=== PATIENT | female | born 1995 | race Caucasian/White ===

== ENCOUNTER → 2017-08-24 | Outpatient (CLI) | payer OTHER | LOC: BMCIMAGING 09:43 | PROVIDERS: ATTEND Physician Assistant | DX: Z13.820 Encounter for screening for osteoporosis (principal); F50.9 Eating disorder, unspecified; M85.80 Other specified disorders of bone density and structure, unspecified site ==

== ENCOUNTER → 2017-09-19 | Outpatient (CLI) | payer OTHER | LOC: BMCIMAGING 10:39 → EDSTATUS 10:44 | PROVIDERS: ATTEND Physician Assistant | DX: R10.9 Unspecified abdominal pain (principal); F50.9 Eating disorder, unspecified ==

== ENCOUNTER → 2018-06-26 | Outpatient (CLI) | payer OTHER | LOC: FIMAGING 08:32 | PROVIDERS: ATTEND Obstetrics & Gynecology | DX: R10.2 Pelvic and perineal pain (principal); Z97.5 Presence of (intrauterine) contraceptive device ==

== ENCOUNTER 2018-12-19 20:16 | Emergency (ER) | payer OTHER ==
[2018-12-19] MEDS ORDERED: NS 1,000 ML IV ONE ×2 (20:36)
--- NOTE | 2018-12-19 20:49 | EDPHY ---
H & P Stated Complaint: dx with uti x 2 days, dizziness back pain today Time Seen by Provider: 12/19/18 20:36 HPI/ROS: HPI: This is a 23-year-old female who presents with Chief Complaint: dx with uti x 2 days, dizziness back pain today Location: Lower back Quality: Discomfort and pressure Duration: To 3 hr prior to arrival Signs and Symptoms: no fever, no nausea, no vomiting, no hematemesis, no blood in stool, no abdominal bloating, no diarrhea, + back pain, no urinary symptoms, no vaginal bleeding, no indigestion, no chest pain, no shortness of breath Timing: Acute, intermittent episodes Severity: Mild Context: Patient was diagnosed with a urinary tract infection on 12/17/2018 at the urgent care and prescribed Uribel and Keflex by Dr. Camacho. Reports compliance with taking both medications. States that her urine is a light green in color from the Uribel. Patient presents today with complaints of lower back discomfort that is described as achiness, bilateral, nonradiating in nature. She has a history of pyelonephritis and she is concerned that she may have worsening urinary tract symptoms. She went to the urgent care today due to vaginal discharge and itchiness and had a pelvic exam performed along with pelvic swabs. She reports that she will be called tomorrow with the results these cultures. After further questioning. She admits to me that she is concerned that she may have chlamydia. She has had unprotected sexual intercourse. She does have an IUD in place. Modifying Factors: Comment: ROS: A comprehensive 10 system review of systems is otherwise negative aside from elements mentioned in the history of present illness. MEDICAL/SURGICAL/SOCIAL HISTORY: Medical history: Generally healthy. Does not take any regular medications. Surgical history: Denies Social history: Family history noncontributory. Former smoker. CONSTITUTIONAL: Well-developed, well-nourished, young adult white female, awake and alert, no obvious distress HEENT: Atraumatic and normocephalic, PERRL, EOMI. Nares patent; no rhinorrhea; no nasal mucosal edema. Tympanic membranes clear. Oropharynx clear, no exudate and moist pink mucosa. Airway patent. No lymphadenopathy. No meningismus. Cardiovascular: Normal S1/S2, regular rate, regular rhythm, without murmur rub or gallop. PULMONARY/CHEST: Symmetrical and nontender. Clear to auscultation bilaterally. Good air movement. No accessory muscle usage. ABDOMEN: Soft, nondistended, nontender, no rebound, no guarding, no peritoneal signs, no masses or organomegaly. No CVAT. EXTREMITIES: 2/2 pulses, strength 5/5, no deformities, no clubbing, no cyanosis or edema. NEUROLOGICAL: no focal neuro deficits. GCS 15. SKIN: Warm and dry, no erythema. no rash. Good capillary refill. Source: Patient Exam Limitations: No limitations - Personal History LMP (Females 10-55): IUD In Place - Medical/Surgical History Hx Asthma: No Hx Chronic Respiratory Disease: No Hx Diabetes: No Hx Cardiac Disease: No Hx Renal Disease: No Hx Cirrhosis: No Hx Alcoholism: No Hx HIV/AIDS: No Hx Splenectomy or Spleen Trauma: No - Social History Smoking Status: Former smoker Constitutional: Initial Vital Signs Temperature (C) 37.0 C 12/19/18 20:23 Heart Rate 71 12/19/18 20:23 Blood Pressure 122/77 H 12/19/18 20:23 O2 Sat (%) 94 12/19/18 20:23 O2 Delivery Mode Room Air Allergies/Adverse Reactions: egg [eggs] Allergy (Verified 12/19/18 20:36) shellfish derived Allergy (Verified 12/19/18 20:36) wheat Allergy (Verified 12/19/18 20:36) Home Medications: Medication Instructions Recorded Keflex 12/19/18 Uribel Capsule 12/19/18 Medical Decision Making ED Course/Re-evaluation: Vital signs reviewed upon arrival in stable. No systemic signs. Patient does not appear to toxic. IV access, laboratory studies, urinalysis ordered Laboratory studies reviewed and No signs of leukocytosis/anemia/platelet dysfunction/MICHEAL/electrolyte imbalance/. Urinalysis is completely unremarkable Patient is extremely concerned about gonorrhea and chlamydia and reports "I cannot wait for the results." Decision made to prophylactically treat with IM Rocephin 250 mg and p.o. Azithromycin 1 g. Reassured patient that urine is negative into continue antibiotic until complete. Patient is not exhibiting any signs of sepsis, pyelonephritis. This patient was seen under the supervision of my primary supervising physician. I evaluated and cared for this patient independently. Differential Diagnosis: Back pain including but not limited to muscular pain, herniated disc, spine fracture, intra-abdominal causes and urinary tract infection. - Data Points Laboratory Results: Laboratory Results 12/19/18 21:14 12/19/18 21:14 12/19/18 12/19/18 12/19/18 21:14 21:14 21:14 WBC 8.91 10^3/uL 10^3/uL (3.80-9.50) RBC 4.99 10^6/uL 10^6/uL (4.18-5.33) Hgb 14.5 g/dL g/dL (12.6-16.3) Hct 44.3 % % (38.0-47.0) MCV 88.8 fL fL (81.5-99.8) MCH 29.1 pg pg (27.9-34.1) MCHC 32.7 g/dL g/dL (32.4-36.7) RDW 13.2 % % (11.5-15.2) Plt Count 242 10^3/uL 10^3/uL (150-400) MPV 9.6 fL fL (8.7-11.7) Neut % (Auto) 54.5 % % (39.3-74.2) Lymph % (Auto) 37.3 % % (15.0-45.0) Placer % (Auto) 6.3 % % (4.5-13.0) Eos % (Auto) 1.5 % % (0.6-7.6) Baso % (Auto) 0.2 % L % (0.3-1.7) Nucleat RBC Rel Count 0.0 % % (0.0-0.2) Absolute Neuts (auto) 4.86 10^3/uL 10^3/uL (1.70-6.50) Absolute Lymphs (auto) 3.32 10^3/uL H 10^3/uL (1.00-3.00) Absolute Monos (auto) 0.56 10^3/uL 10^3/uL (0.30-0.80) Absolute Eos (auto) 0.13 10^3/uL 10^3/uL (0.03-0.40) Absolute Basos (auto) 0.02 10^3/uL 10^3/uL (0.02-0.10) Absolute Nucleated RBC 0.00 10^3/uL 10^3/uL (0-0.01) Immature Gran % 0.2 % % (0.0-1.1) Immature Gran # 0.02 10^3/uL 10^3/uL (0.00-0.10) Sodium 137 mEq/L mEq/L (135-145) Potassium 3.5 mEq/L mEq/L (3.5-5.2) Chloride 103 mEq/L mEq/L (97-110) Carbon Dioxide 22 mEq/l mEq/l (22-31) Anion Gap 12 mEq/L mEq/L (6-14) BUN 18 mg/dL mg/dL (7-23) Creatinine 0.7 mg/dL mg/dL (0.6-1.0) Estimated GFR > 60 Glucose 77 mg/dL mg/dL (70-100) Calcium 9.3 mg/dL mg/dL (8.5-10.4) Beta HCG, Qual NEGATIVE Urine Color Urine Appearance Urine pH Ur Specific [place] Urine Protein Urine Ketones Urine Blood Urine Nitrate Urine Bilirubin Urine Urobilinogen Ur Leukocyte Esterase Urine Glucose 12/19/18 20:50 WBC RBC Hgb Hct MCV MCH MCHC RDW Plt Count MPV Neut % (Auto) Lymph % (Auto) Placer % (Auto) Eos % (Auto) Baso % (Auto) Nucleat RBC Rel Count Absolute Neuts (auto) Absolute Lymphs (auto) Absolute Monos (auto) Absolute Eos (auto) Absolute Basos (auto) Absolute Nucleated RBC Immature Gran % Immature Gran # Sodium Potassium Chloride Carbon Dioxide Anion Gap BUN Creatinine Estimated GFR Glucose Calcium Beta HCG, Qual Urine Color GREEN Urine Appearance CLEAR Urine pH 6.0 (5.0-7.5) Ur Specific [place] 1.019 (1.002-1.030) Urine Protein NEGATIVE (NEGATIVE) Urine Ketones NEGATIVE (NEGATIVE) Urine Blood NEGATIVE (NEGATIVE) Urine Nitrate NEGATIVE (NEGATIVE) Urine Bilirubin NEGATIVE (NEGATIVE) Urine Urobilinogen NEGATIVE EU EU (0.2-1.0) Ur Leukocyte Esterase NEGATIVE (NEGATIVE) Urine Glucose NEGATIVE (NEGATIVE) Medications Given: Discontinued Medications Acetaminophen (Tylenol) 1,000 mg PO EDNOW ONE Stop: 12/19/18 21:40 Last Admin: 12/19/18 21:48 Dose: 1,000 mg Azithromycin (Zithromax) 1,000 mg PO EDNOW ONE PRN Reason: Protocol Stop: 12/19/18 22:24 Last Admin: 12/19/18 22:31 Dose: 1,000 mg Ceftriaxone Sodium (Rocephin Im Syringe) 250 mg IM EDNOW ONE PRN Reason: Protocol Stop: 12/19/18 22:24 Last Admin: 12/19/18 22:56 Dose: 250 mg Sodium Chloride (Ns) 1,000 mls @ 0 mls/hr IV ONCE ONE; Wide Open PRN Reason: Protocol Stop: 12/19/18 20:37 Last Admin: 12/19/18 21:16 Dose: 1,000 mls Sodium Chloride (Ns) 1,000 mls @ 0 mls/hr IV ONCE ONE; Wide Open PRN Reason: Protocol Stop: 12/19/18 20:37 Last Admin: 12/19/18 21:17 Dose: 1,000 mls Ondansetron HCl (Zofran) 4 mg IVP EDNOW ONE Stop: 12/19/18 21:39 Last Admin: 12/19/18 21:40 Dose: 4 mg Ondansetron HCl (Zofran Odt) 4 mg PO EDNOW ONE Stop: 12/19/18 22:24 Last Admin: 12/19/18 22:41 Dose: Not Given Ondansetron HCl (Zofran) 4 mg IVP EDNOW ONE Stop: 12/19/18 22:42 Last Admin: 12/19/18 22:42 Dose: 4 mg Departure - Departure Disposition: Home, Routine, Self-Care Clinical Impression: Sexually transmitted disease exposure Urinary tract infection Qualifiers: Urinary tract infection type: acute cystitis Hematuria presence: without hematuria Qualified Code(s): N30.00 - Acute cystitis without hematuria Condition: Good Instructions: Sexually Transmitted Diseases (ED), Urinary Tract Infection in Women (ED), Safe Sex Practices for Adolescents (ED) Additional Instructions: Continue to take Keflex 500 mg 3 times a day for the total 7 days. Please wait for you're pelvic swab cultures to resulted from the urgent care clinic. You have been given antibiotics to cover gonorrhea and chlamydia today. Please refrain from sexual activity for minimum of 7 days and until all sexual partners have been treated if test results are positive. Referrals: Betsy Bobby PA [Primary Care Provider] - As per Instructions
[2018-12-19 21:32] LABS: PLATELET COUNT 242 10^3/uL (150-400)
[2018-12-19] MEDS ORDERED: ONDANSETRON 4 MG/2 ML VIAL ONE (21:33)
[2018-12-19] MEDS ORDERED: ONDANSETRON 4 MG/2 ML VIAL IVP ONE ×2 (21:38→22:41)
[2018-12-19] MEDS ORDERED: ACETAMINOPHEN 500 MG TAB PO ONE (21:39)
[2018-12-19 22:19] VITALS: BP 95/73
[2018-12-19] MEDS ORDERED: ONDANSETRON DISINTEGRATING 4 MG TAB PO ONE (22:23)
[2018-12-19] MEDS ORDERED: AZITHROMYCIN 250 MG TAB PO ONE (22:23)
== END 2018-12-19 23:17 | disposition home or self-care (01) ==
DX: A64 Unspecified sexually transmitted disease (principal); N30.00 Acute cystitis without hematuria; E86.9 Volume depletion, unspecified; Z87.891 Personal history of nicotine dependence; Z97.5 Presence of (intrauterine) contraceptive device
CPT/HCPCS: 96374; J0696; J2405

== ENCOUNTER 2019-01-20 01:04 | Emergency (ER) | payer OTHER ==
--- NOTE | 2019-01-20 01:11 | EDPHY ---
H & P Stated Complaint: uti symptoms for 6 hours, took keflex and azo cryptanalyst Time Seen by Provider: 01/20/19 01:11 HPI/ROS: HPI CHIEF COMPLAINT: Urinary frequency, dysuria. HISTORY OF PRESENT ILLNESS: Patient very pleasant 23-year-old female, she presents emergency room with urinary frequency and dysuria that started late this evening. She states woke her up sleep. She mainly complains of dysuria. She denies any back pain. Does complain of some suprapubic cramping. Denies being . Denies vomiting. This started suddenly tonight. She reports to me she took some Keflex that was left over from her previous urinary tract infection a while ago but thinks it may have been . Past Medical History: Denies significant medical history Past Surgical History: Denies recent surgery Social History: Denies drugs alcohol tobacco. Family History: Noncontributory ROS REVIEW OF SYSTEMS: 10 Systems were reviewed and negative with the exception of the elements mentioned in the history of present illness. Exam Constitutional appears well nontoxic no acute distress triage nursing summary reviewed, vital signs reviewed, awake/alert. Vital signs stable. Eyes normal conjunctivae and sclera, EOMI, PERRLA. HENT normal inspection, atraumatic, moist mucus membranes, no epistaxis, neck supple/ no meningismus, no raccoon eyes. Respiratory clear to auscultation bilaterally, normal breath sounds, no respiratory distress, no wheezing. Cardiovascular rate normal, regular rhythm, no murmur, no edema, distal pulses normal. Gastrointestinal mild tender palpation suprapubic, no right lower quadrant pain , no peritoneal signs, soft, non-tender, no rebound, no guarding, normal bowel sounds, no distension, no pulsatile mass. Genitourinary no CVA tenderness. Musculoskeletal no midline vertebral tenderness, full range of motion, no calf swelling, no tenderness of extremities, no meningismus, good pulses, neurovascularly intact. Skin pink, warm, & dry, no rash, skin atraumatic. Neurologic awake, alert and oriented x 3, AAOx3, moves all 4 extremities equally, motor intact, sensory intact, CN II-XII intact, normal cerebellar, normal vision, normal speech. Psychiatric normal mood/affect. Heme/Lymph/Immune no lymphadenopathy. Differential Diagnosis: Includes but is not limited to in a particular order UTI, cystitis, pyelonephritis. Medical Decision Making: Plan for this patient check UA, urine test. Re-evaluation: Urinalysis reviewed nitrite positive. Urine culture sent. Plan for Keflex and pyridium. Encouraged patient drink lots of fluids stay well-hydrated. Peridium and Keflex for urinary tract infection urine culture will be sent. We also discussed return precautions return emergency room if worsening symptoms includes abdominal pain, fever, vomiting, back pain, not doing well. Source: Patient - Personal History LMP (Females 10-55): Extended Cycle BCP/Inj Current Tetanus Diphtheria and Acellular Pertussis (TDAP): Yes - Medical/Surgical History Hx Asthma: No Hx Chronic Respiratory Disease: No Hx Diabetes: No Hx Cardiac Disease: No Hx Renal Disease: No Hx Cirrhosis: No Hx Alcoholism: No Hx HIV/AIDS: No Hx Splenectomy or Spleen Trauma: No Other PMH: frequent uti - Social History Smoking Status: Former smoker Constitutional: Initial Vital Signs Temperature (C) 36.5 C 01/20/19 01:08 Heart Rate 78 01/20/19 01:08 Respiratory Rate 16 01/20/19 01:08 Blood Pressure 128/88 H 01/20/19 01:08 O2 Sat (%) 96 01/20/19 01:08 O2 Delivery Mode Room Air Allergies/Adverse Reactions: egg [eggs] Allergy (Verified 01/20/19 01:05) shellfish derived Allergy (Verified 01/20/19 01:05) wheat Allergy (Verified 01/20/19 01:05) Home Medications: Medication Instructions Recorded Keflex 12/19/18 Uribel Capsule 12/19/18 Cephalexin [Keflex] 500 mg PO Q6H #28 cap 01/20/19 Phenazopyridine HCl [Pyridium] 200 mg PO TID #15 tab 01/20/19 Medical Decision Making - Data Points Laboratory Results: 01/20/19 01:10 Urine Color ZACH Urine Appearance HAZY Urine pH 7.0 (5.0-7.5) Ur Specific [place] 1.017 (1.002-1.030) Urine Protein NEGATIVE (NEGATIVE) Urine Ketones NEGATIVE (NEGATIVE) Urine Blood 3+ H (NEGATIVE) Urine Nitrate POSITIVE H (NEGATIVE) Urine Bilirubin NEGATIVE (NEGATIVE) Urine Urobilinogen 4.0 EU H EU (0.2-1.0) Ur Leukocyte Esterase 2+ H (NEGATIVE) Urine RBC Pending Urine WBC Pending Ur Epithelial Cells Pending Urine Glucose NEGATIVE (NEGATIVE) Medications Given: Discontinued Medications Acetaminophen (Tylenol) 1,000 mg PO EDNOW ONE Stop: 01/20/19 01:29 Last Admin: 01/20/19 01:34 Dose: 1,000 mg Point of Care Test Results: Urine Collection Date 01/20/19 Collection Time 01:29 HCG Results Negative Departure - Departure Disposition: Home, Routine, Self-Care Clinical Impression: Urinary tract infection Condition: Good Instructions: Urinary Tract Infection in Women (ED) Additional Instructions: 1. Drink lots of fluids stay well-hydrated 2. Antibiotics as prescribed 3. Return to the emergency room if worsening symptoms includes worsening abdominal pain, vomiting, fever, not doing well Referrals: [facility],. [Clinic] - As per Instructions Prescriptions: Cephalexin [Keflex] 500 mg PO Q6H #28 cap Phenazopyridine HCl [Pyridium] 200 mg PO TID #15 tab
[2019-01-20] MEDS ORDERED: ACETAMINOPHEN 500 MG TAB PO ONE (01:28)
[2019-01-20] MEDS ORDERED: CEPHALEXIN 500 MG CAP PO ONE (01:37)
[2019-01-20] MEDS ORDERED: PHENAZOPYRIDINE HCL 200 MG TAB PO ONE (01:37)
[2019-01-20] MEDS ORDERED: CEPHALEXIN 500MG PREPACK#4 BTL TAKEHOME ONE (01:37)
[2019-01-20] MEDS ORDERED: NITROFURANTOIN 100MG PREPACK#2 BTL TAKEHOME ONE (02:28)
[2019-01-20] MEDS ORDERED: NITROFURANTOIN MACROBID 100 MG CAP PO ONE (02:28)
[2019-01-20 02:43] VITALS: BP 122/71
== END 2019-01-20 02:42 | disposition home or self-care (01) ==
DX: N39.0 Urinary tract infection, site not specified (principal)
CPT/HCPCS: 81025-ER